=== PATIENT | female | born 1950 | race Caucasian/White ===

== ENCOUNTER 2019-02-03 10:45 | Inpatient (IN) | payer MEDICARE ==
[~2019-02-03] VITALS: Ht 167.6 cm; Wt 121.4 kg
[~2019-02-03 10:45] MED LIST changes: -ASPI81CH PO; -ATOR40TA PO; -CLOP75 PO; -LORA.5 PO; -Lisinopril2.5 MG PO; -METO25ER PO; -NITR.4SL SL
[2019-02-03 11:31] LABS: International Normalized Ratio 1.04
--- NOTE | 2019-02-03 12:06 | NUR ---
echocardiogram complete
--- NOTE | 2019-02-03 18:34 | NUR ---
SHIFT SUMMARY 1515 PT RECEIVED FROM [facility]. PT AMBULATED FROM WHEELCHAIR TO BED STANDBY ASSIST. RIGHT WRIST SOFT, NO BLEED OR HEMATOMA, TR BAND CDI, ARMBOARD IN PLACE. DENIES PAIN THIS SHIFT. ALERT AND ORIENTED X3. LUNG SOUNDS CLEAR, NSR ON TELEMETRY. RIGHT WRIST REMAINED STABLE THROUGHOUT THE SHIFT. PER PROTOCOL, AIR IS BEING REMOVED FROM TR BAND, NO BLEEDING NOTED.
--- NOTE | 2019-02-03 21:17 | NUR ---
TR-BAND, 2 CC OF AIR REMOVED. NO BLEEDING NO HEMATOMA, NO COMPLAINTS OF PAIN IN RT WRIST.
--- NOTE | 2019-02-04 04:45 | NUR ---
ASSUMED CARE OF PATIENT AT APPROXIMATELY 1910 FROM SILVANA Hernandes RN. PATIENT ALERT AND ORIENTED X4; ANXIOUS; SBA TO BATHROOM; PATIENT HAS BEEN TO BATHROOM INDEPENDENTLY THIS SHIFT. PATIENT S/P ANGIO YESTERDAY; NO INTERVENTIONS; TR BAND INFLATED; ARMBOARD IN PLACE; SMALL AMOUNT OF BLOOD NOTED UNDER TR BAND; NO S/S OF BLEEDING, HEMATOMA OR BRUISING NOTED; SOFT AND NONTENDER; PATIENT OCCASIONALLY REMOVES ARMBAND; REPORTS THIS AM SHE DOESNT KNOW HOW IT GET OFF AND ON HER SIDE TABLE. TR BAND DEFLATED BY 2300; TEGADERM PLACED AROUND 0000. PATIENT DENIES CP/PRESSURE, PAIN ELSEWHERE, NUMBNESS, TINGLING, DIZZINESS OR NAUSEA. PIV S/L. NSR ON TELE; OXYGEN SATURATION ABOVE 90% ON ROOM AIR. PATIENT EXPRESSED FRUSTRATION WITH BEING WOKEN UP FREQUENTLY; REMOVED TELE AT ONE POINT AND REPORTED TO [facility] THAT "IT'S NOT CONNECTED TO ANYTHING" ANYWAYS. TROPONINS TRENDING DOWN. VSS. PATIENT CURRENTLY RESTING IN BED; CALL LIGHT IN REACH; BED IN LOWEST POSISTION; WILL CONTINUE TO MONITOR AND ASSESS UNTIL END OF SHIFT.
--- NOTE | 2019-02-04 08:56 | NUR ---
INITIAL ASSESSMENT: PT IS SITTING UP IN BED WATCHING TV. PT IS ALERT AND OX3 PT DENIES CHEST PAIN AT THIS TIME, SHE STATES SHE HAS BEEN HAVING SOME "INDIGESTION, BUT I JUST GOT DONE EATING BREAKFAST SO ITS NORMAL." HRR. LS CTA, BIOX WNL ON RA. BT+. PT HAS ARM BOARD TO RIGHT WRIST AREA, FOR POST-ANGIO PRECAUTIONS. RIGHT RADIAL SITE WITH OPSITE DRESSING OVER IT, CDI NO DRAINAGE NOTED. PPP. TRACE EDEMA NOTED TO BLE. VSS. AM MEDS GIVEN WHOLE WITH WATER. I TALKED WITH PATIENT ABOUT HER NEW MEDICATIONS I GAVE HER A PRINT OUT ON HER METOPROLOL. I WILL PRINT OUT MORE INFORMATION FOR ALL OF HER OTHER MEDICATIONS. PT DENIES OTHER NEEDS AT THIS TIME. CALL LIGHT IN REACH. WILL CONTINUE TO MONITOR.
[2019-02-04] MEDS ORDERED: ASPI81CH PO ×2 (12:43)
[2019-02-04] MEDS ORDERED: ATOR40TA PO ×2 (12:43)
[2019-02-04] MEDS ORDERED: Lisinopril2.5 MG PO ×2 (12:44)
[2019-02-04] MEDS ORDERED: METO25ER PO ×2 (12:44)
[2019-02-04] MEDS ORDERED: CLOP75 PO ×2 (12:44)
[2019-02-04] MEDS ORDERED: NITR.4SL SL ×2 (12:46)
[2019-02-04] MEDS ORDERED: LORA.5 PO ×2 (12:46)
--- NOTE | 2019-02-04 13:04 | NUR ---
VSS. DR. VALE AND DR. MORE HAVE BEEN BY TO SEE THE PATIENT SHE IS OK TO GO HOME.
--- NOTE | 2019-02-04 13:25 | NUR ---
PT TO HOME VIA WC
== END 2019-02-04 13:23 | disposition home or self-care (01) | DRG 287 ==
LOC: ER 10:45 → ERHOLD 10:46 → PCU 14:36 → ERHOLD 14:36 → PCU 15:13
PROVIDERS: Emergency Medicine; ADMIT Family Medicine
PROC: 4A023N7 Measurement of Cardiac Sampling and Pressure, Left Heart, Percutaneous Approach (ICD-10-PCS; principal; 2019-02-03)
PROC: B211YZZ Fluoroscopy of Multiple Coronary Arteries using Other Contrast (ICD-10-PCS; 2019-02-03)
DX: I51.81 Takotsubo syndrome (principal); I10 Essential (primary) hypertension; M79.7 Fibromyalgia; Z79.82 Long term (current) use of aspirin; E03.9 Hypothyroidism, unspecified; I25.10 Atherosclerotic heart disease of native coronary artery without angina pectoris
CPT/HCPCS: 36415; 71046; 83036; 83735; 84443; 84484; 85610; 85730; 93005; 93010; 93306; 93458; 99152; 99285-25; C1769; C1894; J1644; J2250; J3010; J7030; Q9967

== ENCOUNTER → 2019-02-03 | Outpatient (CLI) | payer MEDICARE ==
[~2019-02-03] MED LIST: ASPI81CH PO; ATOR40TA PO; Adipex-P37.5 M1 PO; Aspir-Trin325 MG PO; CITA20 PO; CLOP75 PO; CODACE30 PO; CYCL10 PO; Citalopram HBr10 MG PO; DIAZ10 PO; ERYT.5TO RIGHTEYE; IBUP600 PO; IBUP800 PO; LORA.5 PO; Lisinopril2.5 MG PO; METO25ER PO; NITR.4SL SL; OXYACE5T PO; PROM25 PO; THYR60 PO
[2019-02-03 10:04] LABS: BASOPHILS ABSOLUTE AUTO 0.04 K/mm3 (0.00-0.23); BASOPHILS PERCENT AUTO 0 % (0-2); EOSINOPHILS ABSOLUTE AUTO 0.07 K/mm3 (0.00-0.68); EOSINOPHILS PERCENT AUTO 1 % (0-6); Hematocrit 39.7 % (33.0-51.0); Hemoglobin 13.2 g/dL (11.5-16.0); IMMATURE GRAN ABSOLUTE AUTO 0.03 K/mm3 (0.00-0.10); IMMATURE GRAN PERCENT AUTO 0 % (0-1); LYMPHOCYTES PERCENT AUTO 12 % (21-46); MONOCYTES ABSOLUTE AUTO 0.71 K/mm3 (0.16-1.47); MONOCYTES PERCENT AUTO 7 % (4-13); Mean Corpuscular HGB 29.6 pg (26.0-34.0); Mean Corpuscular HGB Conc 33.2 g/dL (31.5-36.5); Mean Corpuscular Volume 89 fL (80-100); Mean Platelet Volume 9.8 fL (9.1-12.4); NEUTROPHILS ABSOLUTE AUTO 7.65 K/mm3 (1.96-9.15); NEUTROPHILS PERCENT AUTO 80 % (41-73); Platelet Count 215 K/mm3 (150-400); RDW Coefficient Variation 13.4 % (11.7-14.2); RDW Standard Deviation 43.4 fL (35.1-46.3); Red Blood Cell Count 4.46 M/mm3 (3.80-5.20)
[2019-02-03 10:28] LABS: Alanine Aminotransfer (ALT/SGP 28 U/L (12-78); Albumin, Blood 3.8 g/dL (3.4-5.0); Albumin/Globulin Ratio 1.2 (0.8-1.8); Alk Phos 38 U/L (40-126); Anion Gap 12 mmol/L (6-16); Aspartate Aminotrans (AST/SGOT 29 U/L (12-37); Bilirubin, Total 0.7 mg/dL (0.1-1.0); Blood Urea Nitrogen 16 mg/dL (8-24); Bun/Creatinine Ratio 17.4 (12.0-20.0); CO2, Blood 25 mmol/L (21-32); Calcium, Blood 9.3 mg/dL (8.5-10.1); Chloride, Blood 107 mmol/L (98-108); Creatinine, Blood 0.92 mg/dL (0.40-1.00); Globulin, Blood 3.1 g/dL (2.2-4.0); Glomerular Filtration Rate >60 (60-); Glucose, Blood 145 mg/dL (70-99); Potassium, Blood 3.9 mmol/L (3.5-5.5); Sodium, Blood 144 mmol/L (136-145); Total Protein, Blood 6.9 g/dL (6.4-8.2)
[2019-02-03 10:29] LABS: Troponin I 2.307 ng/mL (0.000-0.040)
== END | disposition home or self-care (01) ==
LOC: LAB SHORT 09:56 → LAB EV 09:56
PROVIDERS: Physician Assistant Medical
DX: R07.9 Chest pain, unspecified (principal)
CPT/HCPCS: 80053; 84484; 85025; 85379

== ENCOUNTER 2019-10-24 22:10 | Emergency (ER) | payer BC, OTHER ==
[~2019-10-24] VITALS: Ht 167.6 cm; Wt 108.9 kg
[~2019-10-24 22:10] MED LIST changes: +ASPI81CH PO; +ATOR40TA PO; +CLOP75 PO; +LORA.5 PO; +Lisinopril2.5 MG PO; +METO25ER PO; +NITR.4SL SL
[2019-10-24] MEDS ORDERED: ENOX120I (23:38)
[2019-10-24] MEDS ORDERED: TRAM50 PO (23:38)
[2019-10-24] MEDS ORDERED: Percocet 10-321 EACH (23:38)
== END 2019-10-24 23:40 | disposition home or self-care (01) ==
LOC: ER 22:10
DX: I82.411 Acute embolism and thrombosis of right femoral vein (principal); I82.451 Acute embolism and thrombosis of right peroneal vein
CPT/HCPCS: 99283

== ENCOUNTER 2022-08-22 14:16 | Emergency (ER) | payer MEDICARE ==
[~2022-08-22] VITALS: Ht 167.6 cm; Wt 113.4 kg
[~2022-08-22 14:16] MED LIST changes: +ENOX120I; +Percocet 10-321 EACH; +TRAM50 PO
[2022-08-22 15:02] LABS: BASOPHILS ABSOLUTE AUTO 0.03 K/mm3 (0.00-0.23); BASOPHILS PERCENT AUTO 1 % (0-2); EOSINOPHILS ABSOLUTE AUTO 0.26 K/mm3 (0.00-0.68); EOSINOPHILS PERCENT AUTO 5 % (0-6); Hematocrit 39.1 % (33.0-51.0); Hemoglobin 13.1 g/dL (11.5-16.0); IMMATURE GRAN ABSOLUTE AUTO 0.01 K/mm3 (0.00-0.10); IMMATURE GRAN PERCENT AUTO 0 % (0-1); LYMPHOCYTES ABSOLUTE AUTO 1.49 K/mm3 (0.84-5.20); LYMPHOCYTES PERCENT AUTO 26 % (21-46); MONOCYTES ABSOLUTE AUTO 0.44 K/mm3 (0.16-1.47); MONOCYTES PERCENT AUTO 8 % (4-13); Mean Corpuscular HGB Conc 33.5 g/dL (31.5-36.5); Mean Corpuscular Volume 90 fL (80-100); Mean Platelet Volume 9.6 fL (9.1-12.4); NEUTROPHILS ABSOLUTE AUTO 3.46 K/mm3 (1.96-9.15); NEUTROPHILS PERCENT AUTO 61 % (41-73); Platelet Count 191 K/mm3 (150-400); RDW Coefficient Variation 12.8 % (11.7-14.2); RDW Standard Deviation 42.4 fL (35.1-46.3); Red Blood Cell Count 4.36 M/mm3 (3.80-5.20); White Blood Cell Count 5.69 K/mm3 (4.00-11.30)
[2022-08-22 15:14] LABS: Albumin, Blood 3.7 g/dL (3.4-5.0); Albumin/Globulin Ratio 1.2 (0.8-1.8); Bilirubin, Total 0.6 mg/dL (0.1-1.0); Bun/Creatinine Ratio 22.9 (12.0-20.0); Calcium, Blood 9.1 mg/dL (8.5-10.1); Creatinine, Blood 0.79 mg/dL (0.40-1.00); Total Protein, Blood 6.7 g/dL (6.4-8.2)
[2022-08-22 20:28] LABS: Influenza A, PCR NEGATIVE (NEGATIVE); Influenza B, PCR NEGATIVE (NEGATIVE); Resp Syncytial Virus, PCR NEGATIVE (NEGATIVE); SARS-Cov-2 (COVID-19) PCR, MMC NEGATIVE (NEGATIVE)
== END 2022-08-22 19:53 | disposition home or self-care (01) ==
LOC: ER 14:16
PROVIDERS: Physician Assistant
DX: R06.02 Shortness of breath (principal); R07.9 Chest pain, unspecified; I50.9 Heart failure, unspecified; Z79.82 Long term (current) use of aspirin; Z79.899 Other long term (current) drug therapy; Z88.7 Allergy status to serum and vaccine; Z87.891 Personal history of nicotine dependence; Z96.641 Presence of right artificial hip joint
CPT/HCPCS: 0241U; 36415; 71046; 80053; 83880; 84484; 85025; 93005; 93010

== ENCOUNTER → 2023-05-02 | Outpatient (CLI) | payer MEDICARE ==
[2023-05-02 16:27] LABS: Source, Urine Clean Catch
[2023-05-02 17:48] LABS: Hyaline Casts 0-2 /lpf (0-2)
[2023-05-02 17:49] LABS: Bacteria Few /hpf; Red Blood Cells, Urine Not Seen /hpf (0-2); Squamous Epithelial Cells Mod /hpf (Few)
== END | disposition home or self-care (01) ==
LOC: LAB 14:00 → LAB SHORT 14:00
PROVIDERS: Family Medicine
DX: R30.0 Dysuria (principal)
CPT/HCPCS: 81015; 87086